=== PATIENT | female | born 1980 | race African-American/Black ===

== ENCOUNTER 2024-04-05 13:15 | Emergency (ER) | payer MEDICAID ==
--- NOTE | 2024-04-05 14:03 | ED Physician Documentation ---
PD HPI UPPER EXT INJURY - Stated complaint Stated Complaint: PX POST FALL - Chief complaint Chief Complaint: Ext Problem - History obtained from History obtained from: Patient - History of Present Illness Location: Right, Elbow Type of injury: Fall (she slipped and fell on stairs, landing onto right elbow with pain and swelling. Some pain in ribs but good movement and not hurting for breathing.) Timing - onset: Today Timing - details: Abrupt onset Associated symptoms: Swelling. No: Weakness, Numbness Similar symptoms before: Has not had sx before Review of Systems Skin: denies: Abrasion (s), Laceration (s) Neurologic: reports: Numbness (some down to little finger.). denies: Focal weakness, Headache, Head injury PD PAST MEDICAL HISTORY - Past Medical History Past Medical History: Yes Endocrine/Autoimmune: HyPOthyroidism - Past Surgical History Past Surgical History: No - Present Medications Home Medications: Ambulatory Orders Medication Instructions Recorded Confirmed Cetirizine [ZyrTEC] 10 mg PO DAILY 04/05/24 04/05/24 Levothyroxine [Synthroid] 88 mcg PO QDAC 04/05/24 04/05/24 - Allergies Allergies/Adverse Reactions: Allergies Allergy/AdvReac Type Severity Reaction Status Date / Time No Known Drug Allergies Allergy Verified 04/05/24 13:40 - Social History Does the pt smoke?: No Smoking Status: Never smoker Does the pt drink ETOH?: No Does the pt have substance abuse?: No - Immunizations Immunizations are current?: Yes - POLST Patient has POLST: No PD ED PE NORMAL - Vitals Vital signs reviewed: Yes - General General: Alert and oriented X 3, Well developed/nourished - HEENT HEENT: Atraumatic - Cardiac Cardiac: RRR, No murmur - Respiratory Respiratory: No respiratory distress, Clear bilaterally, Other (no notable chest wall tenderness nor deformity. ) - Back Back: No spinal TTP - Derm Derm: Normal color, Warm and dry - Extremities Extremities: Other (right elbow with some swelling of posterior bursa. No lacs. There is tenderness lateral concyle and some at antecub area. Pain with full extension and also with supination/pronation at AC area. Little finger with decreased sensation. ) - Neuro Neuro: No motor deficit Results - Vitals Vitals: Vital Signs - 24 hr 07/30/24 07/30/24 13:34 14:25 Temperature 36.6 C Heart Rate 91 86 Respiratory 18 18 Rate Blood Pressure 158/104 H 143/85 H O2 Saturation 99 100 Oxygen O2 Source Room air - Rads (name of study) right elbow Relevant Findings:: Prelim report reviewed (normal), EMP independent interpretation of test (possible angulation at neck of radius. ) PD Medical Decision Making - ED course Complexity details: reviewed results (Radiology report is normal. My view in cunjunction with some antecub tenderness and pain with supination, is that there is a squared off angle at one side radial neck that could be concerning for mild impaction fx. Also clinically has some olecronon bursal swelling. ), considered differential, d/w patient Departure - Departure Disposition: 01 Home, Self Care Clinical Impression: Fall from slip, trip, or stumble, Elbow contusion Condition: Stable Record reviewed to determine appropriate education?: Yes Instructions: ED Sprain Elbow, ED Fx Radial Head Comments: Your x-ray does not show any obvious fractures in the main area that you are hurting on the posterior/outer elbow. There is obviously swelling there and tenderness over some bruising and sprain. There can also be injury to the fluid sac in that area called the bursa and that can swell up fairly dramatically sometimes. It still would be time for it to just get better. On the radial neck part of the elbow (the part we looked at on the x-ray print) there is the possibility of a mild impaction fracture at the neck. This will get treated typically conservatively with just use of a sling and decreased motion and use. It may be just a normal variation on the x-ray and not a fracture. If it continues hurting beyond a week or so then follow-up with your primary care or just assume a fracture but it would be good to see that it heals up well also following up with your primary care. In the meanwhile presuming bruising and sprain, use a sling and no lifting or push pull with the arm. Tylenol or ibuprofen as needed for pains. Ice periodically to it to help reduce swelling. Forms: PCP List Discharge Date/Time: 04/05/24 14:26
[2024-04-05] MEDS: IBUPROFEN 600 MG TABLET PO STA (14:25)
[2024-04-05] MEDS: ACETAMINOPHEN 325 MG TABLET PO STA (14:25)
--- NOTE | 2024-04-05 14:32 | XRAY Report ---
PROCEDURE: Elbow 1-2V RT INDICATIONS: fall down 4 stairs TECHNIQUE: 3 views of the elbow were acquired. COMPARISON: None. FINDINGS: Bones: No fractures or dislocations. No suspicious bony lesions. Soft tissues: No effusion. No suspicious soft tissue calcifications or masses. IMPRESSION: No acute bony abnormality or significant joint effusion. Reviewed by: Carlos Martell MD on 04/05/2024 2:31 PM PDT Approved by: Carlos Martell MD on 04/05/2024 2:31 PM PDT Station ID: [id number]
[2024-04-05 14:52] VITALS: BP 143/85; O2SAT 100
== END 2024-04-05 14:26 | disposition home or self-care (01) ==
LOC: ED 13:15
DX: S50.01XA Contusion of right elbow, initial encounter (principal); W10.9XXA Fall (on) (from) unspecified stairs and steps, initial encounter
CPT/HCPCS: 99283